=== PATIENT | female | born 1985 | race American Indian/Alaskan Native ===

== ENCOUNTER 2017-02-15 14:30 | Observation (INO) | payer BC ==
[2017-02-15 14:54] VITALS: BMI 25.1
--- NOTE | 2017-02-15 16:25 | ED PDOC ---
Arrival/HPI - General Chief Complaint: Seizure Time Seen by Provider: 02/15/17 14:51 Historian: Patient - History of Present Illness Narrative History of Present Illness (Text): 02/15/17 16:07 Rafat Logan is a 32 year old female, whose past medical history includes seizures, who presents to the emergency department complaining of seizure prior to arrival. Patient states that she was in the bathroom and after peeing, experienced "valentin vu" and began seizing. Patient states that she may have hit her head because her face is sore and has a headache. Patient also indicates that her bilateral shoulders and neck are in pain, which worsens with movement of any kind. At present, patient is no longer dizzy but still nauseated. Patient denies any alcohol use and any other complaint at this time. PMD: None Neurologist: Dr. Temo Posada Time/Duration: Prior to Arrival Symptom Onset: Sudden Symptom Course: Improving Severity Level: Mild Activities at Onset: Light Context: Home Past Medical History - Provider Review Nursing Documentation Reviewed: Yes - Infectious Disease Hx of Infectious Diseases: None - Tetanus Immunization Tetanus Immunization: Unknown - Cardiac Hx Cardiac Disorders: No - Pulmonary Hx Respiratory Disorders: No - Neurological Hx Neurological Disorder: Yes Hx Seizures: Yes - HEENT Hx HEENT Disorder: No - Renal Hx Renal Disorder: No - Endocrine/Metabolic Hx Endocrine Disorders: No - Hematological/Oncological Hx Blood Disorders: No - Integumentary Hx Dermatological Disorder: No - Musculoskeletal/Rheumatological Hx Musculoskeletal Disorders: No - Gastrointestinal Hx Gastrointestinal Disorders: No - Genitourinary/Gynecological Hx Genitourinary Disorders: No - Psychiatric Hx Psychophysiologic Disorder: No Hx Substance Use: Yes (weed) - Past Surgical History Past Surgical History: No Previous - Anesthesia Hx Anesthesia: No Hx Anesthesia Reactions: No Hx Malignant Hyperthermia: No - Suicidal Assessment Feels Threatened In Home Enviroment: No Family/Social History - Physician Review Nursing Documentation Reviewed: Yes Family/Social History: No Known Family HX Smoking Status: Former Smoker Hx Alcohol Use: Yes Hx Substance Use: Yes (weed) Substance used: MJ Hx Substance Use Treatment: No Allergies/Home Meds Allergies/Adverse Reactions: Allergies No Known Allergies Allergy (Verified 10/10/16 00:21) Home Medications: Home Meds Medication Instructions Recorded Confirmed levETIRAcetam [Keppra] 500 mg PO DAILY 02/15/17 02/15/17 Review of Systems - Physician Review All systems were reviewed & negative as marked: Yes - Review of Systems Constitutional: absent: Fevers, Night Sweats Eyes: absent: Vision Changes ENT: absent: Epistaxis Respiratory: absent: SOB, Cough Cardiovascular: absent: Chest Pain Gastrointestinal: Nausea. absent: Abdominal Pain Genitourinary Female: absent: Urine Output Changes Musculoskeletal: Neck Pain, Other (Bilateral shoulder pain) Skin: absent: Rash, Pruritis Neurological: Seizure Endocrine: absent: Polyuria Hemo/Lymphatic: absent: Easy Bleeding Psychiatric: absent: Depression Physical Exam Vital Signs Reviewed: Yes Vital Signs Temp Pulse Resp BP Pulse Ox 02/15/17 20:11 64 17 109/65 98 02/15/17 18:45 86 18 92/63 L 99 02/15/17 17:00 88 18 100/66 98 02/15/17 15:10 98.8 F 84 20 129/74 99 Temperature: Afebrile Blood Pressure: Normal Pulse: Regular Respiratory Rate: Normal Appearance: Positive for: Non-Toxic Pain Distress: None Mental Status: Positive for: Confused, Lethargic - Systems Exam Head: Present: Atraumatic, Normocephalic Pupils: Present: PERRL Extroacular Muscles: Present: EOMI Conjunctiva: Present: Normal Mouth: No: Normal Lips (Lip abrasion on inferior right side), Normal Tounge ( Left-sided tongue biting) Pharnyx: Present: Normal. No: ERYTHEMA, EXUDATE Neck: Present: Normal Range of Motion Respiratory/Chest: Present: Clear to Auscultation, Good Air Exchange. No: Respiratory Distress, Accessory Muscle Use Cardiovascular: Present: Regular Rate and Rhythm, Normal S1, S2. No: Murmurs Abdomen: Present: Normal Bowel Sounds. No: Tenderness, Distention, Peritoneal Signs Back: Present: Normal Inspection Upper Extremity: Present: Tenderness (Tenderness to palpation bilateral posterior shoulders. ), Other (pt refusing to actively range shoulders, however I am able to passively range both shoulder on abduction to 90 degrees.) Lower Extremity: Present: Normal Inspection. No: Edema Neurological: Present: GCS=15, CN II-XII Intact, Speech Normal, Motor Func Grossly Intact Skin: Present: Warm, Dry, Normal Color. No: Rashes Psychiatric: Present: Alert, Oriented x 3, Normal Insight, Normal Concentration Medical Decision Making ED Course and Treatment: 02/15/17 16:07 Impression: 32 year old female complaining of a seizure prior to arrival. Differential Diagnosis include but are not limited to: SeizureHere in Plan: -- EKG -- Chest X-ray -- Head CT w/o contrast -- Right Shoulder X-ray -- Left Shoulder X-ray -- Urinalysis, HCG -- Labs -- Toradol and IV Fluids -- Reassess and disposition Prior Visits: Notes and results from previous visits were reviewed. Patient last seen in ED on 11/08/16 for Dilantin refill. Patient was discharged home. Progress Notes: EKG: Ordered, reviewed, and independently interpreted the EKG. Rate : 70 BPM Rhythm : NSR Interpretation : T-wave inversions in V3 and V4. Normal intervals. Normal axis. ST-T segments normal. Comparison : No previous EKG for comparison. 02/15/17 19:[address]: Creator : Hannah Zamudio MD FINDINGS: HEMORRHAGE:No intracranial hemorrhage. BRAIN: No mass effect or edema. The henderson-white matter differentiation appears intact. Please note that MRI with diffusion imaging is more sensitive in the detection of acute ischemic event. VENTRICLES:No hydrocephalus. CALVARIUM:Unremarkable. PARANASAL SINUSES:Unremarkable as visualized. No significant inflammatory changes. MASTOID AIR CELLS:Unremarkable as visualized. No inflammatory changes. OTHER FINDINGS:None. IMPRESSION: No acute intracranial pathology identified. 02/15/17 19:15 Chest X-ray: Creator : Hannah Zamudio MD FINDINGS: LUNGS:Left costophrenic angle is excluded from view. No focal consolidation. Please note that chest x-ray has limited sensitivity for the detection of pulmonary masses. PLEURA:No significant pleural effusion identified. No definite pneumothorax . CARDIOVASCULAR:The cardiomediastinal silhouette appears within normal limits of size. OSSEOUS STRUCTURES: Question fracture fragment or calcification adjacent to the left glenoid. VISUALIZED UPPER ABDOMEN:Unremarkable. OTHER FINDINGS:None. IMPRESSION: No focal consolidation, significant pleural effusion, or definite pneumothorax identified. Calcification versus fracture fragment adjacent to the left glenoid. 02/15/17 21:44 Here in the emergency department, the patient was confused and somewhat lethargic but able to answer questions. She then said she was starting to have the "valentin vu" feeling again and started looking up, she was given ativan. Despite patient insistent on not missing a dose of dilantin, her level is <3. Loaded with fospenyton. Patient still very drowsy. Also complaining of itching , possible due to fosphenyton or toradol (for the shoulder pain), given low dose of benadryl with itching resolution. Patient saying shoulder pain feels better b/L and has FROM b/L actively. X-ray showing possible glenoid fx. Case discussed with Dr. Posada. Given persistent confusion at this time, will observe further for alt ms. Case discussed with on-call physician, Dr. Houser for Dr. Hall. - Lab Interpretations Lab Results: 02/15/17 16:00 02/15/17 16:00 Lab Results 02/15/17 16:00: Phenytoin < 3 L 02/15/17 16:00: Alcohol, Quantitative < 10 02/15/17 16:00: Sodium 138, Potassium 4.0, Chloride 107, Carbon Dioxide 23, Anion Gap 12, BUN 9, Creatinine 0.6, Est GFR ( Amer) > 60, Est GFR (Non- Af Amer) > 60, Random Glucose 89, Calcium 9.0, Total Bilirubin 0.6, AST 25, ALT 29, Alkaline Phosphatase 55, Total Protein 7.6, Albumin 4.1, Globulin 3.4, Albumin/Globulin Ratio 1.2, Lipase 30 02/15/17 16:00: WBC 8.1 D, RBC 3.69, Hgb 10.4 L, Hct 31.4 L, MCV 85.1, MCH 28.2 , MCHC 33.1, RDW 11.4 L, Plt Count 252, MPV 9.3, Gran % 85.2 H, Lymph % (Auto) 9.0 L, [place] % (Auto) 5.6, Eos % (Auto) 0.0 L, Baso % (Auto) 0.2, Gran # 6.87 H, Lymph # 0.7 L, [place] # 0.5, Eos # 0.0, Baso # 0.02 - RAD Interpretation Radiology Orders: 02/15/17 16:20 HEAD W/O CONTRAST [CT] Stat 02/15/17 16:24 CHEST ONE VIEW [RAD] Stat 02/15/17 16:25 SHOULDER LEFT [RAD] Stat SHOULDER RIGHT [RAD] Stat - Medication Orders Current Medication Orders: Discontinued Medications Diphenhydramine HCl (Benadryl) 10 mg IVP STAT STA Stop: 02/15/17 19:12 Last Admin: 02/15/17 19:46 Dose: 10 mg Sodium Chloride (Sodium Chloride 0.9%) 1,000 mls @ 999 mls/hr IV .Q1H1M STA Stop: 02/15/17 17:31 Last Admin: 02/15/17 16:55 Dose: 999 mls/hr Fosphenytoin Sodium 1,000 mg/ (Sodium Chloride) 70 mls @ 100 mls/hr IV STAT STA Stop: 02/15/17 18:33 Last Admin: 02/15/17 18:35 Dose: 100 mls/hr Ketorolac Tromethamine (Toradol) 30 mg IVP STAT STA Stop: 02/15/17 16:32 Last Admin: 02/15/17 16:56 Dose: 30 mg Re-Assess: [facility] Pain Assessment Document 02/15/17 17:56 IKE (Rec: 02/15/17 19:06 IKE [id number]) Pain Reassessment Is this a pain reassessment? No Sleep Is patient sleeping during reassessment? No Presence of Pain Presence of Pain No Ketorolac Tromethamine (Toradol) 30 mg IVP STAT STA Stop: 02/15/17 19:04 Last Admin: 02/15/17 19:46 Dose: 30 mg Lorazepam (Ativan) Confirm Administered Dose 2 mg .ROUTE .STK-MED ONE Stop: 02/15/17 16:20 Last Admin: 02/15/17 16:24 Dose: 2 mg Disposition/Present on Arrival - Present on Arrival Any Indicators Present on Arrival: No History of DVT/PE: No History of Uncontrolled Diabetes: No Urinary Catheter: No History of Decub. Ulcer: No History Surgical Site Infection Following: None - Disposition Have Diagnosis and Disposition been Completed?: Yes Diagnosis: Seizure, Altered mental status, Subtherapeutic serum phenytoin level, Shoulder pain, bilateral Disposition: HOSPITALIZED Disposition Time: 21:30 Patient Plan: Observation Condition: FAIR Referrals: PCP,NO [Primary Care Provider] - Follow up with primary
[2017-02-15] MEDS ORDERED: Sodium Chloride 0.9% 1,000 ML IV STA (16:31)
[2017-02-15 16:50] LABS: ADD MANUAL DIFF? NO
[2017-02-15 17:01] LABS: HEMATOCRIT 31.4 % (36.0-48.0); MEAN CELL VOLUME 85.1 fL (80.0-105.0); MEAN CORPUSCULAR HEMOGLOBIN 28.2 pg (25.0-35.0); MEAN CORPUSCULAR HGB CONC 33.1 g/dl (31.0-37.0); WHITE BLOOD COUNT 8.1 10^3/ul (4.5-11.0)
[2017-02-15 17:02] LABS: BASO % 0.2 % (0.0-3.0); GRAN # 6.87 (1.4-6.5); GRAN % 85.2 % (50.0-68.0); MEAN PLATELET VOLUME 9.3 fl (7.0-11.0); MONO % 5.6 % (1.0-6.0); PLATELET COUNT 252 10^3/uL (120.0-450.0); RED CELL DISTRIBUTION WIDTH 11.4 % (11.5-14.5)
[2017-02-15 17:03] LABS: ALB/GLOB RATIO 1.2 (1.1-1.8); ALKALINE PHOSPHATASE 55 U/L (38-133); ALT/SGPT 29 U/L (7-56); AST/SGOT 25 U/L (15-39); BASO # 0.02 K/mm3 (0.0-2.0); BILIRUBIN,TOTAL 0.6 mg/dL (0.2-1.3); BLOOD UREA NITROGEN 9 mg/dL (7-21); CARBON DIOXIDE 23 mmol/L (21-33); CHLORIDE 107 mmol/L (95-110); GFR AFRICAN-AMERICAN > 60; GLUCOSE,RANDOM 89 mg/dL (70-110); LIPASE 30 U/L (23-300); LYMPH # 0.7 (1.2-3.4); MONO # 0.5 (0.1-0.6); SODIUM 138 mmol/L (132-148); TOTAL PROTEIN 7.6 g/dL (5.8-8.3)
[2017-02-15] MEDS ORDERED: Fosphenytoin 1,000 MG in Sodium Chloride 0.9% 50 ML IV STA (17:52)
--- NOTE | 2017-02-15 18:17 | CT ---
PROCEDURE: CT HEAD WITHOUT CONTRAST. HISTORY: seizure, hit head COMPARISON: None available. TECHNIQUE: Axial computed tomography images were obtained through the head/brain without intravenous contrast. Radiation dose: Total exam DLP = 1645.25 mGy-cm. This CT exam was performed using one or more of the following dose reduction techniques: Automated exposure control, adjustment of the mA and/or kV according to patient size, and/or use of iterative reconstruction technique. FINDINGS: HEMORRHAGE: No intracranial hemorrhage. BRAIN: No mass effect or edema. The henderson-white matter differentiation appears intact. Please note that MRI with diffusion imaging is more sensitive in the detection of acute ischemic event. VENTRICLES: No hydrocephalus. CALVARIUM: Unremarkable. PARANASAL SINUSES: Unremarkable as visualized. No significant inflammatory changes. MASTOID AIR CELLS: Unremarkable as visualized. No inflammatory changes. OTHER FINDINGS: None. IMPRESSION: No acute intracranial pathology identified.
--- NOTE | 2017-02-15 18:48 | RAD ---
HISTORY: seizure COMPARISON: None available. TECHNIQUE: Chest, one view. FINDINGS: LUNGS: Left costophrenic angle is excluded from view. No focal consolidation. Please note that chest x-ray has limited sensitivity for the detection of pulmonary masses. PLEURA: No significant pleural effusion identified. No definite pneumothorax . CARDIOVASCULAR: The cardiomediastinal silhouette appears within normal limits of size. OSSEOUS STRUCTURES: Question fracture fragment or calcification adjacent to the left glenoid. VISUALIZED UPPER ABDOMEN: Unremarkable. OTHER FINDINGS: None. IMPRESSION: No focal consolidation, significant pleural effusion, or definite pneumothorax identified. Calcification versus fracture fragment adjacent to the left glenoid.
[2017-02-15] MEDS ORDERED: DiphenhydrAMINE 50 mg/ml Inj IVP STA (19:11)
[2017-02-15] MEDS ORDERED: Sodium Chloride 0.9% 1,000 ML IV SCH (22:30)
--- NOTE | 2017-02-15 23:23 | CP.PCM.HP ---
<Gris Whiting - Last Filed: 02/15/17 23:52> History of Present Illness - History of Present Illness History of Present Illness: 32 year old female with past medical history of seizure presents to [facility] ED after having an episodes of seizure. Patient reports this afternoon after she urinated in the restroom. Prior to the episode, she experienced an aura she describes as "dj vu". Patient is unsure if she injured herself from the fall, but she is complaining of facial, neck and bilateral shoulder pain. Patient claims to be compliant with her dilantin. Patient has been in [facility] multiple times for the same complaint, last visit was on 10/2016. While in the ED, was confused and lethargic but able to answer questions. Patient experienced the same "dj vu" sensation again and started rolling her eyes back. Patient was given a dose ativan and fosphenytoin. Unable to obtain further history and ROS due to patient's lethargy. PMD: None, Neuro: Dr. Posada PMHx: seizures PSHx: none Allergy: NKDA Social Hx: per chart review-Former smoker, positive alcohol and marijuana use Family Hx: non contributory Medication: Dilantin 100mg TID Present on Admission - Present on Admission Any Indicators Present on Admission: No History of DVT/PE: No History of Uncontrolled Diabetes: No Review of Systems - Review of Systems Systems not reviewed;Unavailable: Altered Mental Status - Constitutional Constitutional: As Per HPI. absent: Chills, Fever, Night Sweats - EENT Eyes: As Per HPI. absent: Blurred Vision, Change in Vision, Loss of Vision Ears: As Per HPI Nose/Mouth/Throat: As Per HPI. absent: Epistaxis - Cardiovascular Cardiovascular: As Per HPI. absent: Chest Pain, Chest Pain with Activity, Edema - Respiratory Respiratory: As Per HPI. absent: Cough, Dyspnea, Wheezing - Gastrointestinal Gastrointestinal: As Per HPI, Nausea. absent: Constipation, Vomiting - Genitourinary Genitourinary: As Per HPI - Musculoskeletal Musculoskeletal: As Per HPI, Neck Pain, Other (bilateral shoulder pain) - Integumentary Integumentary: As Per HPI. absent: Lesions, Rash - Neurological Neurological: As Per HPI, Other (seizure) - Psychiatric Psychiatric: As Per HPI, Confusion - Endocrine Endocrine: As Per HPI - Hematologic/Lymphatic Hematologic: As Per HPI Past Patient History - Infectious Disease Hx of Infectious Diseases: None - Tetanus Immunizations Tetanus Immunization: Unknown - Past Social History Smoking Status: Former Smoker - CARDIAC Hx Cardiac Disorders: No - PULMONARY Hx Respiratory Disorders: No - NEUROLOGICAL Hx Neurological Disorder: Yes Hx Seizures: Yes - HEENT Hx HEENT Problems: No - RENAL Hx Chronic Kidney Disease: No - ENDOCRINE/METABOLIC Hx Endocrine Disorders: No - HEMATOLOGICAL/ONCOLOGICAL Hx Blood Disorders: No - INTEGUMENTARY Hx Dermatological Problems: No - MUSCULOSKELETAL/RHEUMATOLOGICAL Hx Musculoskeletal Disorders: No - GASTROINTESTINAL Hx Gastrointestinal Disorders: No - GENITOURINARY/GYNECOLOGICAL Hx Genitourinary Disorders: No - PSYCHIATRIC Hx Psychophysiologic Disorder: No Hx Substance Use: Yes (weed) - SURGICAL HISTORY Hx Surgeries: No - ANESTHESIA Hx Anesthesia: No Hx Anesthesia Reactions: No Hx Malignant Hyperthermia: No Meds Allergies/Adverse Reactions: Allergies Allergy/AdvReac Type Severity Reaction Status Date / Time No Known Allergies Allergy Verified 10/10/16 00:21 Physical Exam - Constitutional Appears: Non-toxic, No Acute Distress - Head Exam Head Exam: NORMOCEPHALIC - Eye Exam Eye Exam: EOMI, Normal appearance, PERRL - ENT Exam ENT Exam: Mucous Membranes Moist Additional comments: Left sided tongue ecchymosis, right lower lip abrasion - Neck Exam Neck exam: Positive for: Normal Inspection, Tenderness - Respiratory Exam Respiratory Exam: Clear to Auscultation Bilateral, NORMAL BREATHING PATTERN. absent: Rhonchi, Wheezes, Respiratory Distress - Cardiovascular Exam Cardiovascular Exam: REGULAR RHYTHM, RRR, +S1, +S2 - GI/Abdominal Exam GI & Abdominal Exam: Normal Bowel Sounds, Soft. absent: Tenderness - Extremities Exam Extremities exam: Positive for: full ROM (passive full ROM), tenderness ( bilateral shoulder) - Back Exam Back exam: NORMAL INSPECTION - Neurological Exam Neurological exam: Oriented x3 Additional comments: lethargic - Psychiatric Exam Additional comments: lethargic, unable to assess - Skin Skin Exam: Dry, Intact, Normal Color, Warm Results - Vital Signs Recent Vital Signs: Last Vital Signs Temp 98.8 F 02/15/17 15:10 Pulse 63 02/15/17 22:38 Resp 16 02/15/17 22:38 BP 91/49 L 02/15/17 22:38 Pulse Ox 97 02/15/17 22:38 - Labs Result Diagrams: 02/15/17 16:00 02/15/17 16:00 Assessment & Plan - Assessment and Plan (Free Text) Assessment: 32 year old female with past medical history of seizure presents after having a seizure at home Plan: Seizure -Neurology consult, Dr. Anthony Posada help apprecited -Dilantin 100mg PO TID -Ativan 1mg iv Q4 prn -CT head no acute intracranial pathology -IVF NS 100ml/hr -Phenytoin level < 3 -Urine drug screen -Neuro check Q6 -Seizure precaution -Aspiration precaution -Fall protocol Left glenoid fracture -CXR showed probable left glenoid fx -Pending shoulder x-ray -Toradol 30mg IV Q6 prn Prophylactic measures -Protonix for GI ppx -SCD for DVT ppx -Benadryl IV for allergy symptoms <Logan Houser - Last Filed: 03/09/17 15:00> Results - Vital Signs Recent Vital Signs: Last Vital Signs Temp 98.5 F 02/16/17 16:00 Pulse 62 02/17/17 08:46 Resp 18 02/17/17 08:46 BP 117/80 02/17/17 08:46 Pulse Ox 99 02/17/17 08:46 - Labs Result Diagrams: 02/17/17 08:00 02/17/17 08:00 Attending/Attestation - Attestation I have personally seen and examined this patient.: Yes I have fully participated in the care of the patient.: Yes I have reviewed all pertinent clinical information: Yes Notes (Text): 03/09/17 15:00 Medical record note made by the resident after discussion with my direction and input after the patient was personally seen and examined by me. I have reviewed the chart and agree that the record accurately reflects by personal performance of the history, physical exam, data review, and medical decision-making, in the course for the patient. I have also personally directed the plan of care.
[2017-02-15] MEDS ORDERED: DiphenhydrAMINE 50 mg/ml Inj IVP PRN (23:32)
[2017-02-16 00:18] LABS: URINE BILIRUBIN NEGATIVE (NEGATIVE); URINE BLOOD NEGATIVE (NEGATIVE); URINE GLUCOSE (UA) NEGATIVE (NEGATIVE); URINE KETONE NEGATIVE (NEGATIVE); URINE LEUKOCYTE ESTERASE NEGATIVE Leu/uL (NEGATIVE); URINE PROTEIN NEGATIVE mg/dL (<30 mg/dL); URINE UROBILINOGEN 0.2 E.U./dL (<1 E.U./dL)
[2017-02-16 00:37] LABS: URINE APPEARANCE CLEAR (CLEAR); URINE COLOR YELLOW (YELLOW)
[2017-02-16] MEDS ORDERED: Pneumococcal 23-Valent Vaccine IM ONE (01:12)
[2017-02-16 08:24] LABS: ADD MANUAL DIFF? NO
[2017-02-16 08:29] LABS: BASO # 0.03 K/mm3 (0.0-2.0); BASO % 0.6 % (0.0-3.0); EOS # 0.1 (0.0-0.7); EOS % 1.5 % (1.5-5.0); GRAN # 2.86 (1.4-6.5); GRAN % 61.2 % (50.0-68.0); HEMATOCRIT 30.7 % (36.0-48.0); LYMPH # 1.4 (1.2-3.4); LYMPH % 28.8 % (22.0-35.0); MEAN CELL VOLUME 86.5 fL (80.0-105.0); MEAN CORPUSCULAR HEMOGLOBIN 28.2 pg (25.0-35.0); MEAN CORPUSCULAR HGB CONC 32.6 g/dl (31.0-37.0); MONO # 0.4 (0.1-0.6); MONO % 7.9 % (1.0-6.0); PLATELET COUNT 223 10^3/uL (120.0-450.0); RED CELL DISTRIBUTION WIDTH 11.5 % (11.5-14.5); WHITE BLOOD COUNT 4.7 10^3/ul (4.5-11.0)
[2017-02-16 08:47] LABS: ALB/GLOB RATIO 1.1 (1.1-1.8); ALKALINE PHOSPHATASE 46 U/L (38-133); ALT/SGPT 22 U/L (7-56); AST/SGOT 19 U/L (15-39); BLOOD UREA NITROGEN 10 mg/dL (7-21); CALCIUM 8.5 mg/dL (8.4-10.5); CARBON DIOXIDE 24 mmol/L (21-33); CHLORIDE 109 mmol/L (98-107); GFR AFRICAN-AMERICAN > 60; GLUCOSE,RANDOM 82 mg/dL (70-110); POTASSIUM 3.5 mmol/L (3.6-5.0); SODIUM 139 mmol/L (132-148); TOTAL PROTEIN 6.7 g/dL (5.8-8.3)
--- NOTE | 2017-02-16 09:34 | RAD ---
PROCEDURE: Radiographs of the Right Shoulder HISTORY: shoulder pain post seizure COMPARISON: No prior. FINDINGS: BONES: Normal. No fracture. JOINTS: Normal. Glenohumeral and acromioclavicular joints preserved. No osteoarthritis. SOFT TISSUES: Normal. OTHER FINDINGS: There is a small bony fragment or calcification adjacent to the inferior aspect of the bony glenoid. A similar finding is seen in the opposite shoulder. This is of uncertain significance IMPRESSION: No acute findings
--- NOTE | 2017-02-16 10:03 | CARD ---
APPROVED REPORT EKG Measurement Heart [id number] MA [id number] <Conclusion> Normal sinus rhythm with sinus arrhythmia T wave abnormality, consider anterior ischemia Abnormal ECG
[2017-02-16] MEDS: Pantoprazole 40 mg EC Tab PO SCH (10:25)
[2017-02-16] MEDS ORDERED: Potassium Chloride 20 mEq ER Tab PO ONE (15:24)
--- NOTE | 2017-02-16 15:30 | CP.PCM.PN ---
<Diana Larson - Last Filed: 02/16/17 15:39> Subjective - Date & Time of Evaluation Date of Evaluation: 02/16/17 Time of Evaluation: 07:20 - Subjective Subjective: Medicine progress note for Dr Hall and Dr Houser service Patient admitted last night s/p breakthrough seizures. Patient was loaded with phosphenytoin in the ED. Now on remote tele. Patient reports she had seizures 4x yesterday. Patient denies medication non compliance, although phenytoin level is <3. Patient appears non cooperative, and would close her eyes and ignore me when I was interviewing her. Unable to obtain detail ROS. Objective - Vital Signs/Intake and Output Vital Signs (last 24 hours): Temp Pulse Resp BP Pulse Ox 98.6 F 81 18 115/68 99 02/16/17 06:00 02/16/17 06:00 02/16/17 06:00 02/16/17 06:00 02/16/17 06:00 Intake and Output: 02/16/17 02/16/17 06:59 18:59 Intake Total 800 Balance 800 - Medications Medications: Current Medications Diphenhydramine HCl (Benadryl) 10 mg IVP Q6 PRN PRN Reason: Allergy symptoms Sodium Chloride (Sodium Chloride 0.9%) 1,000 mls @ 100 mls/hr IV .Q10H [facility] Last Admin: 02/15/17 22:36 Dose: 100 mls/hr Ketorolac Tromethamine (Toradol) 30 mg IVP Q6 PRN PRN Reason: Pain, severe (8-10) Lorazepam (Ativan) 1 mg IVP Q4 PRN; Protocol PRN Reason: Seizure activity Pantoprazole Sodium (Protonix Ec Tab) 40 mg PO 0630 [facility] Last Admin: 02/16/17 10:25 Dose: 40 mg Phenytoin Sodium (Dilantin) 100 mg PO TID [facility] Last Admin: 02/16/17 14:04 Dose: 100 mg Potassium Chloride (K-Dur 20 Meq Er Tab) 40 meq PO ONCE ONE Stop: 02/16/17 15:25 - Labs Labs: 02/16/17 08:00 02/16/17 08:00 - Constitutional Appears: No Acute Distress, Older Than Stated Age - Head Exam Head Exam: ATRAUMATIC, NORMAL INSPECTION, NORMOCEPHALIC - Eye Exam Eye Exam: Normal appearance - ENT Exam ENT Exam: Mucous Membranes Dry - Neck Exam Neck Exam: Normal Inspection - Respiratory Exam Respiratory Exam: Clear to Ausculation Bilateral, NORMAL BREATHING PATTERN. absent: Rales, Rhonchi, Wheezes, Respiratory Distress, Stridor - Cardiovascular Exam Cardiovascular Exam: REGULAR RHYTHM, RRR, +S1, +S2 - GI/Abdominal Exam GI & Abdominal Exam: Soft, Normal Bowel Sounds. absent: Distended, Firm, Guarding, Rigid, Tenderness - Extremities Exam Extremities Exam: Normal Inspection - Back Exam Back Exam: NORMAL INSPECTION - Neurological Exam Additional comments: Sleeping, hard to awake, unable to assess mental detailed mental status. - Psychiatric Exam Psychiatric exam: Flat Affect - Skin Skin Exam: Dry, Normal Color, Warm Assessment and Plan - Assessment and Plan (Free Text) Assessment: Patient is a 32 y/o with pmh of seizure disorders admitted with breakthrough seizures. Plan: 1) Breakthrough seizures likely secondary to medication non compliance versus inadequate dose. - R/o infection- afebrile, no leukocysotis, ua negative - r/o cva - CT w/o contrast with no acute ischemic changes - r/o arrhythmias- ekg with sinus arrhythmias, non specific ST wave changes. - s/p phosphenytoin loading dose - Ativan prn - continue phenytoin 100 mg po tid. - Obtain TSH - Utox positive for canabinoids, phenytoin level <3. etoh level <10 - Pending neuro eval - will obtain EEG - Continue seizure, fall precaution 2)Incidental bony fragments versus calcifications found on x-ray bilaterally - no shoulder pain - no trauma 3) Hypokalemia- will replete, and continue to monitor. 4) DVT and gi prophylaxis: scds and protonix. Patient seen, examined, discussed with Dr Houser. <Logan Houser - Last Filed: 03/10/17 18:41> Objective - Vital Signs/Intake and Output Vital Signs (last 24 hours): Temp Pulse Resp BP Pulse Ox 98.5 F 62 18 117/80 99 02/16/17 16:00 02/17/17 08:46 02/17/17 08:46 02/17/17 08:46 02/17/17 08:46 - Labs Labs: 02/17/17 08:00 02/17/17 08:00 Attending/Attestation - Attestation I have personally seen and examined this patient.: Yes I have fully participated in the care of the patient.: Yes I have reviewed all pertinent clinical information, including history, physical exam and plan: Yes Notes (Text): 03/09/17 15:10 Medical record note made by the resident after discussion with my direction and input after the patient was personally seen and examined by me. I have reviewed the chart and agree that the record accurately reflects by personal performance of the history, physical exam, data review, and medical decision-making, in the course for the patient. I have also personally directed the plan of care.
[2017-02-16 20:04] VITALS: TEMP 98.5
--- NOTE | 2017-02-16 20:18 | CON ---
DATE: 02/16/2017 HISTORY OF PRESENT ILLNESS: She is a 32-year-old black female with a past medical history of seizure s who came with the complaint of seizure prior to coming to the hospital. The patient says she was i n the bathroom and experienced, felt like having a seizure, and hit her head and also felt dizzy, wilmer led to evaluate the patient. PHYSICAL EXAMINATION: VITAL SIGNS: Blood pressure 129/74. HEENT: Normocephalic, atraumatic. NECK: Supple. NEUROLOGIC: Alert, awake, orientated x 3. No aphasia. Cranial nerves II-XII were tested. Pupils r eactive. EOM intact. Visual thorpe full. No facial asymmetry. Tongue midline. Motor examination: Moves all the extremities equally. Tone normal. Deep tendon reflexes 1+. Both plantars are downg oing. Sensory appears intact. Cerebellar gait deferred. CAT scan did not show any intracranial pathology. ASSESSMENT: Possibly syncope versus seizure. The patient was not taking medication, was not on Dila ntin 100 mg 3 times a day. Followup will continue. Austin Posada MD cc: [id number] TT: 02/16/2017 20:18:18 Confirmation # [id number] Dictation # [id number] amber
[2017-02-17] MEDS: Pantoprazole 40 mg EC Tab PO SCH (06:59)
[2017-02-17 08:28] LABS: ADD MANUAL DIFF? NO
[2017-02-17 08:33] LABS: BASO # 0.02 K/mm3 (0.0-2.0); BASO % 0.5 % (0.0-3.0); EOS # 0.1 (0.0-0.7); EOS % 3.6 % (1.5-5.0); GRAN # 1.55 (1.4-6.5); GRAN % 39.9 % (50.0-68.0); HEMATOCRIT 30.9 % (36.0-48.0); LYMPH # 1.8 (1.2-3.4); LYMPH % 45.9 % (22.0-35.0); MEAN CELL VOLUME 85.8 fL (80.0-105.0); MEAN CORPUSCULAR HEMOGLOBIN 28.3 pg (25.0-35.0); MEAN PLATELET VOLUME 9.1 fl (7.0-11.0); MONO # 0.4 (0.1-0.6); MONO % 10.1 % (1.0-6.0); PLATELET COUNT 225 10^3/uL (120.0-450.0); RED CELL DISTRIBUTION WIDTH 11.4 % (11.5-14.5); WHITE BLOOD COUNT 3.9 10^3/ul (4.5-11.0)
[2017-02-17 08:45] LABS: ALB/GLOB RATIO 1.1 (1.1-1.8); ALKALINE PHOSPHATASE 48 U/L (38-133); ALT/SGPT 22 U/L (7-56); AST/SGOT 18 U/L (15-39); BILIRUBIN,TOTAL 0.9 mg/dL (0.2-1.3); BLOOD UREA NITROGEN 9 mg/dL (7-21); CALCIUM 8.8 mg/dL (8.4-10.5); CARBON DIOXIDE 24 mmol/L (21-33); CHLORIDE 107 mmol/L (98-107); GFR AFRICAN-AMERICAN > 60; GLUCOSE,RANDOM 86 mg/dL (70-110); POTASSIUM 4.3 mmol/L (3.6-5.0); SODIUM 140 mmol/L (132-148); TOTAL PROTEIN 7.1 g/dL (5.8-8.3)
[2017-02-17 08:46] VITALS: BP 117/80; PULSE 62; RESP 18; O2SAT 99
--- NOTE | 2017-02-17 14:54 | CP.PCM.DIS ---
<NeoDiana - Last Filed: 02/23/17 15:50> Provider - Provider Date of Admission: 02/15/17 21:21 Attending physician: Gavino Hall MD Primary care physician: NO PRIMARY CARE PROVIDER Consults: Neuro Time Spent in preparation of Discharge (in minutes): 45 Diagnosis - Discharge Diagnosis (1) Breakthrough seizure Status: Resolved Hospital Course - Lab Results Lab Results: Most Recent Lab Values WBC 3.9 10^3/ul (4.5-11.0) L 02/17/17 08:00 RBC 3.60 10^6/uL (3.5-6.1) 02/17/17 08:00 Hgb 10.2 gm/dL (12.0-16.0) L 02/17/17 08:00 Hct 30.9 % (36.0-48.0) L 02/17/17 08:00 MCV 85.8 fL (80.0-105.0) 02/17/17 08:00 MCH 28.3 pg (25.0-35.0) 02/17/17 08:00 MCHC 33.0 g/dl (31.0-37.0) 02/17/17 08:00 RDW 11.4 % (11.5-14.5) L 02/17/17 08:00 Plt Count 225 10^3/uL (120.0-450.0) 02/17/17 08:00 MPV 9.1 fl (7.0-11.0) 02/17/17 08:00 Gran % 39.9 % (50.0-68.0) L 02/17/17 08:00 Lymph % (Auto) 45.9 % (22.0-35.0) H 02/17/17 08:00 [place] % (Auto) 10.1 % (1.0-6.0) H 02/17/17 08:00 Eos % (Auto) 3.6 % (1.5-5.0) 02/17/17 08:00 Baso % (Auto) 0.5 % (0.0-3.0) 02/17/17 08:00 Gran # 1.55 (1.4-6.5) 02/17/17 08:00 Lymph # 1.8 (1.2-3.4) 02/17/17 08:00 Schoolcraft # 0.4 (0.1-0.6) 02/17/17 08:00 Eos # 0.1 (0.0-0.7) 02/17/17 08:00 Baso # 0.02 K/mm3 (0.0-2.0) 02/17/17 08:00 Sodium 140 mmol/L (132-148) 02/17/17 08:00 Potassium 4.3 mmol/L (3.6-5.0) 02/17/17 08:00 Chloride 107 mmol/L (98-107) 02/17/17 08:00 Carbon Dioxide 24 mmol/L (21-33) 02/17/17 08:00 Anion Gap 13 (10-20) 02/17/17 08:00 BUN 9 mg/dL (7-21) 02/17/17 08:00 Creatinine 0.6 mg/dL (0.5-1.4) 02/17/17 08:00 Est GFR ( Amer) > 60 02/17/17 08:00 Est GFR (Non-Af Amer) > 60 02/17/17 08:00 Random Glucose 86 mg/dL (70-110) 02/17/17 08:00 Calcium 8.8 mg/dL (8.4-10.5) 02/17/17 08:00 Total Bilirubin 0.9 mg/dL (0.2-1.3) 02/17/17 08:00 AST 18 U/L (15-39) 02/17/17 08:00 ALT 22 U/L (7-56) 02/17/17 08:00 Alkaline Phosphatase 48 U/L (38-133) 02/17/17 08:00 Total Protein 7.1 g/dL (5.8-8.3) 02/17/17 08:00 Albumin 3.7 g/dL (3.0-4.8) 02/17/17 08:00 Globulin 3.4 gm/dL 02/17/17 08:00 Albumin/Globulin Ratio 1.1 (1.1-1.8) 02/17/17 08:00 Lipase 30 U/L (23-300) 02/15/17 16:00 TSH 3rd Generation 1.48 mIU/mL (0.46-4.68) 02/17/17 08:00 Urine Color Yellow (YELLOW) 02/15/17 23:50 Urine Appearance Clear (CLEAR) 02/15/17 23:50 Urine pH 6.0 (4.7-8.0) 02/15/17 23:50 Ur Specific Wayne >= 1.030 (1.005-1.035) 02/15/17 23:50 Urine Protein Negative mg/dL (<30 mg/dL) 02/15/17 23:50 Urine Glucose (UA) Negative mg/dL (NEGATIVE) 02/15/17 23:50 Urine Ketones Negative mg/dL (NEGATIVE) 02/15/17 23:50 Urine Blood Negative (NEGATIVE) 02/15/17 23:50 Urine Nitrate Negative (NEGATIVE) 02/15/17 23:50 Urine Bilirubin Negative (NEGATIVE) 02/15/17 23:50 Urine Urobilinogen 0.2 E.U./dL (<1 E.U./dL) 02/15/17 23:50 Ur Leukocyte Esterase Negative Britany/uL (NEGATIVE) 02/15/17 23:50 Urine HCG, Qual Negative (NEGATIVE) 02/15/17 23:50 Urine Opiates Screen Negative (NEGATIVE) 02/15/17 23:50 Urine Methadone Screen Negative (NEGATIVE) 02/15/17 23:50 Ur Barbiturates Screen Negative (NEGATIVE) 02/15/17 23:50 Phenytoin < 3 ug/mL (10-20) L 02/15/17 16:00 Ur Phencyclidine Scrn Negative (NEGATIVE) 02/15/17 23:50 Ur Amphetamines Screen Negative (NEGATIVE) 02/15/17 23:50 U Benzodiazepines Scrn Negative (NEGATIVE) 02/15/17 23:50 U Oth Cocaine Metabols Negative (NEGATIVE) 02/15/17 23:50 U Cannabinoids Screen Positive (NEGATIVE) H 02/15/17 23:50 Alcohol, Quantitative < 10 mg/dL (0-10) 02/15/17 16:00 - Hospital Course Hospital Course: Patient is a 32 y/o with pmh of seizure disorders presented s/p unwitnessed seizure at home. Patient was noted to have breakthrough seizures. utox was positive for urine cannabinoids, and phenytoin level was <3. Patient reported she was taking her meds as prescribed, however stated she was told to take Dilantin 100 mg bid, not tid. CT head was normal. Patient was loaded with phosphenytoin in the ED. basic labs were normal except for anemia and hypokalemia ( repleted). Neuro was consulted. Patient had EEG which was normal. Incidental bony fragments versus calcifications found on x-ray bilaterally, however patient had normal ROM and denied pain. Patient left AMA before obtaining her scripts and referrals. - Date & Time of H&P Date of H&P: 02/14/17 Time of H&P: 22:48 Discharge Exam - Head Exam Head Exam: ATRAUMATIC, NORMAL INSPECTION, NORMOCEPHALIC - Eye Exam Eye Exam: Normal appearance. absent: Scleral icterus - ENT Exam ENT Exam: Mucous Membranes Moist - Neck Exam Neck exam: Normal Inspection - Respiratory Exam Respiratory Exam: Clear to PA & Lateral, NORMAL BREATHING PATTERN, UNREMARKABLE. absent: Rales, Rhonchi, Wheezes, Respiratory Distress, Stridor - Cardiovascular Exam Cardiovascular Exam: REGULAR RHYTHM, RRR, +S1, +S2 - GI/Abdominal Exam GI & Abdominal Exam: Normal Bowel Sounds, Unremarkable. absent: Distended, Firm , Guarding, Soft, Tenderness - Extremities Exam Extremities exam: normal inspection - Back Exam Back exam: NORMAL INSPECTION - Neurological Exam Neurological exam: Alert, Oriented x3 - Psychiatric Exam Psychiatric exam: Normal Affect, Normal Mood - Skin Skin Exam: Dry, Intact, Normal Color, Warm Discharge Plan - Follow Up Plan Condition: FAIR Disposition: AGAINST MEDICAL ADVICE Patient education suggested?: Yes Referrals: PCP,NO [Primary Care Provider] - Logan Houser MD [Staff Provider] - <Logan Houser - Last Filed: 02/26/17 16:29> Provider - Provider Date of Admission: 02/15/17 21:21 Attending physician: Gavino Hall MD Primary care physician: NO PRIMARY CARE PROVIDER Hospital Course - Lab Results Lab Results: Most Recent Lab Values WBC 3.9 10^3/ul (4.5-11.0) L 02/17/17 08:00 RBC 3.60 10^6/uL (3.5-6.1) 02/17/17 08:00 Hgb 10.2 gm/dL (12.0-16.0) L 02/17/17 08:00 Hct 30.9 % (36.0-48.0) L 02/17/17 08:00 MCV 85.8 fL (80.0-105.0) 02/17/17 08:00 MCH 28.3 pg (25.0-35.0) 02/17/17 08:00 MCHC 33.0 g/dl (31.0-37.0) 02/17/17 08:00 RDW 11.4 % (11.5-14.5) L 02/17/17 08:00 Plt Count 225 10^3/uL (120.0-450.0) 02/17/17 08:00 MPV 9.1 fl (7.0-11.0) 02/17/17 08:00 Gran % 39.9 % (50.0-68.0) L 02/17/17 08:00 Lymph % (Auto) 45.9 % (22.0-35.0) H 02/17/17 08:00 Schoolcraft % (Auto) 10.1 % (1.0-6.0) H 02/17/17 08:00 Eos % (Auto) 3.6 % (1.5-5.0) 02/17/17 08:00 Baso % (Auto) 0.5 % (0.0-3.0) 02/17/17 08:00 Gran # 1.55 (1.4-6.5) 02/17/17 08:00 Lymph # 1.8 (1.2-3.4) 02/17/17 08:00 [place] # 0.4 (0.1-0.6) 02/17/17 08:00 Eos # 0.1 (0.0-0.7) 02/17/17 08:00 Baso # 0.02 K/mm3 (0.0-2.0) 02/17/17 08:00 Sodium 140 mmol/L (132-148) 02/17/17 08:00 Potassium 4.3 mmol/L (3.6-5.0) 02/17/17 08:00 Chloride 107 mmol/L (98-107) 02/17/17 08:00 Carbon Dioxide 24 mmol/L (21-33) 02/17/17 08:00 Anion Gap 13 (10-20) 02/17/17 08:00 BUN 9 mg/dL (7-21) 02/17/17 08:00 Creatinine 0.6 mg/dL (0.5-1.4) 02/17/17 08:00 Est GFR ( Amer) > 60 02/17/17 08:00 Est GFR (Non-Af Amer) > 60 02/17/17 08:00 Random Glucose 86 mg/dL (70-110) 02/17/17 08:00 Calcium 8.8 mg/dL (8.4-10.5) 02/17/17 08:00 Total Bilirubin 0.9 mg/dL (0.2-1.3) 02/17/17 08:00 AST 18 U/L (15-39) 02/17/17 08:00 ALT 22 U/L (7-56) 02/17/17 08:00 Alkaline Phosphatase 48 U/L (38-133) 02/17/17 08:00 Total Protein 7.1 g/dL (5.8-8.3) 02/17/17 08:00 Albumin 3.7 g/dL (3.0-4.8) 02/17/17 08:00 Globulin 3.4 gm/dL 02/17/17 08:00 Albumin/Globulin Ratio 1.1 (1.1-1.8) 02/17/17 08:00 Lipase 30 U/L (23-300) 02/15/17 16:00 TSH 3rd Generation 1.48 mIU/mL (0.46-4.68) 02/17/17 08:00 Urine Color Yellow (YELLOW) 02/15/17 23:50 Urine Appearance Clear (CLEAR) 02/15/17 23:50 Urine pH 6.0 (4.7-8.0) 02/15/17 23:50 Ur Specific Wayne >= 1.030 (1.005-1.035) 02/15/17 23:50 Urine Protein Negative mg/dL (<30 mg/dL) 02/15/17 23:50 Urine Glucose (UA) Negative mg/dL (NEGATIVE) 02/15/17 23:50 Urine Ketones Negative mg/dL (NEGATIVE) 02/15/17 23:50 Urine Blood Negative (NEGATIVE) 02/15/17 23:50 Urine Nitrate Negative (NEGATIVE) 02/15/17 23:50 Urine Bilirubin Negative (NEGATIVE) 02/15/17 23:50 Urine Urobilinogen 0.2 E.U./dL (<1 E.U./dL) 02/15/17 23:50 Ur Leukocyte Esterase Negative Britany/uL (NEGATIVE) 02/15/17 23:50 Urine HCG, Qual Negative (NEGATIVE) 02/15/17 23:50 Urine Opiates Screen Negative (NEGATIVE) 02/15/17 23:50 Urine Methadone Screen Negative (NEGATIVE) 02/15/17 23:50 Ur Barbiturates Screen Negative (NEGATIVE) 02/15/17 23:50 Phenytoin < 3 ug/mL (10-20) L 02/15/17 16:00 Ur Phencyclidine Scrn Negative (NEGATIVE) 02/15/17 23:50 Ur Amphetamines Screen Negative (NEGATIVE) 02/15/17 23:50 U Benzodiazepines Scrn Negative (NEGATIVE) 02/15/17 23:50 U Oth Cocaine Metabols Negative (NEGATIVE) 02/15/17 23:50 U Cannabinoids Screen Positive (NEGATIVE) H 02/15/17 23:50 Alcohol, Quantitative < 10 mg/dL (0-10) 02/15/17 16:00 Attending/Attestation - Attestation I have personally seen and examined this patient.: Yes I have fully participated in the care of the patient.: Yes I have reviewed all pertinent clinical information, including history, physical exam and plan: Yes Notes (Text): 02/26/17 16:29 Medical record note made by the resident after discussion with my direction and input after the patient was personally seen and examined by me. I have reviewed the chart and agree that the record accurately reflects by personal performance of the history, physical exam, data review, and medical decision-making, in the course for the patient. I have also personally directed the plan of care.
--- NOTE | 2017-02-22 08:11 | EEG ---
DATE: 02/17/2017 This is a 32-year-old female with a past medical history of seizure. MEDICATIONS: Ativan, Toradol. DESCRIPTION: Background activity of this tracing was composed of 8-9 cycles per second alpha rhythm. A small amount of beta activity and theta activity 5-7 cycles per second was noted in the tracing. Drowsiness was composed of mixed beta and theta activity. Photic stimulation did not change the rec ord. No paroxysmal activity was seen. IMPRESSION: Normal awake, drowsy electroencephalography. Austin Posada MD cc: [id number] TT: 02/18/2017 21:48:09 Confirmation # [id number] Dictation # [id number]
== END 2017-02-17 17:31 | disposition home or self-care (01) ==
LOC: ED 14:30 → ERH 21:21 → 3RSO 23:33
PROVIDERS: ADMIT Internal Medicine; ATTEND Internal Medicine
DX: G40.909 Epilepsy, unspecified, not intractable, without status epilepticus (principal); S42.142A Displaced fracture of glenoid cavity of scapula, left shoulder, initial encounter for closed fracture; R41.82 Altered mental status, unspecified; F12.90 Cannabis use, unspecified, uncomplicated; M25.512 Pain in left shoulder; M25.511 Pain in right shoulder; L29.9 Pruritus, unspecified; T50.995A Adverse effect of other drugs, medicaments and biological substances, initial encounter; Z72.89 Other problems related to lifestyle; M54.2 Cervicalgia; R55 Syncope and collapse; E87.6 Hypokalemia; Z91.14 Patient's other noncompliance with medication regimen; Z87.891 Personal history of nicotine dependence
CPT/HCPCS: 36415; 70450; 71010; 73030; 80053; 80185; 81003; 83690; 84443; 84703; 85025; 93005; 95812; 96361; 96365; 96375; 96376; 99285; G0378; G0480; J1200; J1885; J2060; J7040; Q2009